=== PATIENT | female | born 1970 | race Hispanic/Latino ===

== ENCOUNTER 2018-08-28 10:25 | Emergency (ER) | payer OTHER ==
[~2018-08-28 10:25] MED LIST: HUM10VIA6 SQ; LISI-617 PO; METF-444 PO
[2018-08-28 10:55] LABS: BASOPHILS % (AUTO) 2.3 % (0.0-5.0); EOSINOPHILS % (AUTO) 3.2 % (0.0-8.0); HEMATOCRIT 44.2 % (36-48); MEAN CORPUSCULAR HEMOGLOBIN 26.2 pg (27.0-33.0); MEAN CORPUSCULAR HGB CONC 33.6 g/dL (32.0-36.0); MEAN CORPUSCULAR VOLUME 78.2 fL (79-99); MONOCYTES % (AUTO) 10.7 % (3.0-13.0); NEUTROPHILS % (AUTO) 50.8 % (40.0-77.0); NUCLEATED RED BLOOD CELLS 0.1 % (0.0-0.19); PLATELET COUNT (AUTO) 202 K/uL (130-400); RED BLOOD CELL COUNT(AUTO) 5.66 MIL/uL (4.00-5.50); RED CELL DISTRIBUTION WIDTH 15.3 % (11.0-15.5); WHITE BLOOD COUNT (AUTO) 4.1 K/uL (4.8-10.8)
[2018-08-28] MEDS ORDERED: LABETALOL HCL 5 MG/ML 20ML VIAL IV ONE (10:56)
[2018-08-28 10:58] LABS: APPEARANCE,URINE Clear (CLEAR); BILIRUBIN,URINE Negative (NEGATIVE); COLOR,URINE Yellow (YELLOW); GLUCOSE, URINE (UA) >=1000 mg/dL (NEGATIVE); KETONES,URINE 40 mg/dL (NEGATIVE); LEUKOCYTE ESTERASE ,URINE Negative (NEGATIVE); NITRATE,URINE Negative (NEGATIVE); OCCULT BLOOD,URINE Negative (NEGATIVE); PH,URINE 5.5 (5.0-8.0); PROTEIN,URINE Negative (NEGATIVE); UROBILINOGEN,URINE 0.2 mg/dL (0.2-1.0)
[2018-08-28 11:00] LABS: CREATININE 0.6 mg/dL (0.5-1.5); POTASSIUM 3.8 mmol/L (3.5-5.1)
[2018-08-28 11:12] LABS: BACTERIA,URINE Rare /HPF (None Seen); RBC,URINE None Seen /HPF (0-1); SQUAMOUS EPITHELIAL CELL,UR Few /HPF (0-2)
== END 2018-08-28 13:07 | disposition home or self-care (01) ==
LOC: EDH 10:25
DX: I10 Essential (primary) hypertension (principal); E11.9 Type 2 diabetes mellitus without complications; Z79.4 Long term (current) use of insulin
CPT/HCPCS: 36415; 80048; 81001; 84484; 85025; 93005; 96374; 99284; J3490

== ENCOUNTER 2019-03-20 12:43 | Observation (INO) | payer OTHER ==
[~2019-03-20] VITALS: Ht 157.5 cm; Wt 102.1 kg
[2019-03-20] MEDS ORDERED: ASPIRIN 325 MG TABLET ONE (13:04)
[2019-03-20] MEDS ORDERED: NITROGLYCERIN 0.4 MG SL TAB SL ONE (13:05)
[2019-03-20] MEDS ORDERED: SODIUM CHLORIDE 0.9% 1000ML 1,000 ML IV ONE (13:05)
[2019-03-20 13:09] LABS: BASOPHILS % (AUTO) 1.4 % (0.0-5.0); HEMATOCRIT 41.9 % (36-48); LYMPHOCYTES % (AUTO) 27.5 % (21.0-51.0); MEAN CORPUSCULAR HEMOGLOBIN 25.4 pg (27.0-33.0); MEAN CORPUSCULAR HGB CONC 32.4 g/dL (32.0-36.0); MEAN CORPUSCULAR VOLUME 78.5 fL (79-99); MONOCYTES % (AUTO) 10.6 % (3.0-13.0); NEUTROPHILS % (AUTO) 58.5 % (40.0-77.0); NUCLEATED RED BLOOD CELLS 0.1 % (0.0-0.19); PLATELET COUNT (AUTO) 188 K/uL (130-400); RED BLOOD CELL COUNT(AUTO) 5.34 MIL/uL (4.00-5.50); RED CELL DISTRIBUTION WIDTH 15.2 % (11.0-15.5); WHITE BLOOD COUNT (AUTO) 4.9 K/uL (4.8-10.8)
[2019-03-20] MEDS ORDERED: METOPROLOL TARTRATE 1 MG/ML 5ML VIAL IV ONE (13:11)
[2019-03-20 13:16] LABS: CREATININE 0.6 mg/dL (0.5-1.5); POTASSIUM 4.2 mmol/L (3.5-5.1)
[2019-03-20 13:17] LABS: INR 0.94 (0.85-1.15); PARTIAL THROMBOPLASTIN TIME 23.2 SEC (26.3-35.5); PROTHROMBIN TIME 9.9 SEC (9.6-11.6)
[2019-03-20 13:30] LABS: ALBUMIN 3.7 g/dL (3.5-5.0); BILIRUBIN,TOTAL 0.6 mg/dL (0.2-1.0); THYROID STIMULATING HORMONE 3.66 uIU/mL (0.36-3.74); TOTAL PROTEIN, SERUM 8.2 g/dL (6.0-8.3)
[2019-03-20 13:36] LABS: B-TYPE NATRIURETIC PEPTIDE 8 pg/mL (0-100)
[2019-03-20 14:20] LABS: HCG,QUAL RESULT NEGATIVE (NEGATIVE)
[2019-03-20 14:23] LABS: AMPHET/METH SCREEN,URINE NEGATIVE (NEGATIVE); BARBITURATE SCREEN, URINE NEGATIVE (NEGATIVE); BENZODIAZEPINES SCREEN,URINE NEGATIVE (NEGATIVE); CANNABINOID SCREEN,URINE NEGATIVE (NEGATIVE); COCAINE SCREEN,URINE NEGATIVE (NEGATIVE); OPIATE SCREEN,URINE NEGATIVE (NEGATIVE); PHENCYCLIDINE SCREEN,URINE NEGATIVE (NEGATIVE)
[2019-03-20] MEDS ORDERED: ONDANSETRON HCL 4 MG/2 ML VIAL IVP PRN (16:15)
[2019-03-20] MEDS ORDERED: MORPHINE SULFATE 4 MG/1ML SYG IVP PRN (16:15)
[2019-03-20] MEDS ORDERED: NITROGLYCERIN 0.4 MG SL TAB SL PRN (16:15)
[2019-03-20] MEDS ORDERED: DEXTROSE 50%-WATER 50 ML DISP.SYRIN IV PRN (16:15)
[2019-03-20] MEDS ORDERED: GLUCAGON 1MG KIT 1 MG ML IM PRN (16:15)
[2019-03-20] MEDS ORDERED: ACETAMINOPHEN 325 MG TAB PO PRN (16:15)
[2019-03-20] MEDS ORDERED: ASPIRIN 325 MG TABLET PO ONE (17:00)
[2019-03-20] MEDS ORDERED: METOPROLOL TARTRATE 25 MG TAB PO ONE (17:00)
[2019-03-20] MEDS ORDERED: GLYB5TAB8 PO (17:31)
[2019-03-20] MEDS ORDERED: METF-446 PO (17:31)
[2019-03-20] MEDS ORDERED: ATOR40TA71 PO (17:31)
[2019-03-20] MEDS ORDERED: LISI-613 PO (17:31)
== END 2019-03-20 17:42 | disposition home or self-care (01) ==
LOC: EDH 12:43 → EDHIP 12:44
PROVIDERS: ADMIT Internal Medicine Cardiovascular Disease; ATTEND Internal Medicine Cardiovascular Disease
DX: R07.89 Other chest pain (principal); E11.9 Type 2 diabetes mellitus without complications; E78.5 Hyperlipidemia, unspecified; G47.10 Hypersomnia, unspecified; E66.9 Obesity, unspecified; I10 Essential (primary) hypertension; Z82.49 Family history of ischemic heart disease and other diseases of the circulatory system; Z79.899 Other long term (current) drug therapy
CPT/HCPCS: 36415; 71045; 80053; 80305; 81025; 82550; 83874; 83880; 84436; 84443; 84484; 85025; 85378; 85610; 85730; 93005; 99284; G0378 ×5; J3490; J7030

== ENCOUNTER 2019-05-20 22:30 | Emergency (ER) | payer OTHER ==
[~2019-05-20 22:30] MED LIST changes: +ATOR40TA71 PO; +GLYB5TAB8 PO; -HUM10VIA6 SQ; +LISI-613 PO; -LISI-617 PO; -METF-444 PO; +METF-446 PO
[2019-05-20 23:06] LABS: BASOPHILS % (AUTO) 0.4 % (0.0-5.0); EOSINOPHILS % (AUTO) 2.5 % (0.0-8.0); HEMATOCRIT 42.5 % (36-48); LYMPHOCYTES % (AUTO) 38.4 % (21.0-51.0); MEAN CORPUSCULAR HEMOGLOBIN 25.5 pg (27.0-33.0); MEAN CORPUSCULAR HGB CONC 32.8 g/dL (32.0-36.0); MEAN CORPUSCULAR VOLUME 77.7 fL (79-99); MONOCYTES % (AUTO) 8.6 % (3.0-13.0); NEUTROPHILS % (AUTO) 50.1 % (40.0-77.0); NUCLEATED RED BLOOD CELLS 0.1 % (0.0-0.19); PLATELET COUNT (AUTO) 218 K/uL (130-400); RED BLOOD CELL COUNT(AUTO) 5.47 MIL/uL (4.00-5.50); RED CELL DISTRIBUTION WIDTH 15.7 % (11.0-15.5); WHITE BLOOD COUNT (AUTO) 5.8 K/uL (4.8-10.8)
[2019-05-20 23:14] LABS: CREATININE 0.8 mg/dL (0.5-1.5); POTASSIUM 3.6 mmol/L (3.5-5.1)
[2019-05-20 23:18] LABS: ALBUMIN 3.8 g/dL (3.5-5.0); BILIRUBIN,TOTAL 0.3 mg/dL (0.2-1.0); TOTAL PROTEIN, SERUM 8.1 g/dL (6.0-8.3)
[2019-05-20 23:20] LABS: INR 0.96 (0.85-1.15); PARTIAL THROMBOPLASTIN TIME 23.2 SEC (26.3-35.5); PROTHROMBIN TIME 9.9 SEC (9.6-11.6)
[2019-05-20] MEDS ORDERED: INSULIN HUMULIN R 100 UNIT/ML 3ML ONE (23:29)
== END 2019-05-20 23:55 | disposition home or self-care (01) ==
LOC: EDH 22:30
DX: H53.8 Other visual disturbances (principal); H33.22 Serous retinal detachment, left eye; E11.65 Type 2 diabetes mellitus with hyperglycemia; I10 Essential (primary) hypertension; Z79.4 Long term (current) use of insulin
CPT/HCPCS: 36415; 80053; 85025; 85610; 85730; 96374; 99284; J1815

== ENCOUNTER 2021-05-01 16:27 | Emergency (ER) | payer OTHER ==
[~2021-05-01] VITALS: Ht 160 cm; Wt 113.4 kg
[~2021-05-01 16:27] MED LIST changes: -LISI-613 PO; +LISI20TA24 PO
[2021-05-01 17:12] LABS: BASOPHILS % (AUTO) 1.2 % (0.0-5.0); EOSINOPHILS % (AUTO) 2.7 % (0.0-8.0); HEMATOCRIT 40.8 % (36-48); LYMPHOCYTES % (AUTO) 26.5 % (21.0-51.0); MEAN CORPUSCULAR HEMOGLOBIN 25.2 pg (27.0-33.0); MEAN CORPUSCULAR HGB CONC 31.4 g/dL (32.0-36.0); MEAN CORPUSCULAR VOLUME 80.3 fL (79-99); MONOCYTES % (AUTO) 9.4 % (3.0-13.0); NEUTROPHILS % (AUTO) 59.8 % (40.0-77.0); PLATELET COUNT (AUTO) 257 K/uL (130-400); RED BLOOD CELL COUNT(AUTO) 5.08 MIL/uL (4.00-5.50); RED CELL DISTRIBUTION WIDTH 15.2 % (11.0-15.5); WHITE BLOOD COUNT (AUTO) 6.8 K/uL (4.8-10.8)
[2021-05-01 17:22] LABS: CREATININE 0.8 mg/dL (0.5-1.5)
[2021-05-01 17:27] LABS: ALBUMIN 3.6 g/dL (3.5-5.0); BILIRUBIN,TOTAL 0.4 mg/dL (0.2-1.0); TOTAL PROTEIN, SERUM 8.1 g/dL (6.0-8.3)
[2021-05-01 17:42] LABS: APPEARANCE,URINE Clear (CLEAR); BILIRUBIN,URINE Negative (NEGATIVE); COLOR,URINE Yellow (YELLOW); GLUCOSE, URINE (UA) Negative (NEGATIVE); KETONES,URINE Trace mg/dL (NEGATIVE); LEUKOCYTE ESTERASE ,URINE Trace (NEGATIVE); NITRATE,URINE Negative (NEGATIVE); OCCULT BLOOD,URINE Negative (NEGATIVE); PH,URINE 8.5 (5.0-8.0); PROTEIN,URINE Negative (NEGATIVE); UROBILINOGEN,URINE >=8.0 mg/dL (0.2-1.0)
[2021-05-01 17:49] LABS: BACTERIA,URINE Rare /HPF (None Seen); MUCUS,URINE Rare LPF (None Seen); RBC,URINE 0-1 /HPF (0-1); SQUAMOUS EPITHELIAL CELL,UR Few /HPF (0-2)
[2021-05-01] MEDS ORDERED: HYDROCODONE/ACETAMINOPHEN 5/325 MG TAB PO STA (18:37)
[2021-05-01] MEDS ORDERED: KETOROLAC 30MG VIAL (30MG/ML) IM STA (18:37)
[2021-05-01] MEDS ORDERED: KETOROLAC 60 MG VIAL (30MG/ML) ONE (18:41)
[2021-05-01] MEDS ORDERED: IBUP-2088 PO (19:50)
[2021-05-01 20:06] VITALS: BP 164/86
== END 2021-05-01 20:05 | disposition home or self-care (01) ==
LOC: EDH 16:27
DX: M54.6 Pain in thoracic spine (principal); E11.9 Type 2 diabetes mellitus without complications; E66.9 Obesity, unspecified; Z20.822 Contact with and (suspected) exposure to COVID-19; Z68.41 Body mass index [BMI] 40.0-44.9, adult; M54.2 Cervicalgia; I10 Essential (primary) hypertension; E78.00 Pure hypercholesterolemia, unspecified; Z79.84 Long term (current) use of oral hypoglycemic drugs; Z79.899 Other long term (current) drug therapy
CPT/HCPCS: 36415; 71045; 80053; 81001; 82550; 84484; 85025; 87635; 93005; 96372; 99285; C9803; J1885

== ENCOUNTER → 2023-06-14 | Outpatient (CLI) | payer OTHER ==
[~2023-06-14] MED LIST changes: +CEPH500B PO; +IBUP-2088 PO; +METO-296 PO; +ONDA4TAB10 PO
== END | disposition home or self-care (01) ==
LOC: RAH 08:59
PROVIDERS: ATTEND Nurse Practitioner Family
DX: Z12.31 Encounter for screening mammogram for malignant neoplasm of breast (principal)
CPT/HCPCS: 77067

== ENCOUNTER 2023-10-11 20:42 | Emergency (ER) | payer BC, OTHER ==
[~2023-10-11] VITALS: Ht 160 cm; Wt 104.3 kg
[2023-10-11 21:37] LABS: APPEARANCE,URINE CLEAR (CLEAR); BILIRUBIN,URINE NEGATIVE (NEGATIVE); COLOR,URINE COLORLESS (YELLOW); GLUCOSE, URINE (UA) NEGATIVE (NEGATIVE); KETONES,URINE NEGATIVE (NEGATIVE); LEUKOCYTE ESTERASE ,URINE NEGATIVE Leu/uL (NEGATIVE); NITRATE,URINE NEGATIVE (NEGATIVE); OCCULT BLOOD,URINE NEGATIVE (NEGATIVE); PH,URINE 5.5 (5.0-8.0); PROTEIN,URINE NEGATIVE (NEGATIVE); UROBILINOGEN,URINE 0.2 mg/dL (0.2-1.0)
[2023-10-11 21:49] LABS: ADD UA MICROSCOPIC YES
[2023-10-11 21:51] LABS: BACTERIA,URINE RARE /HPF (None Seen); MUCUS,URINE RARE LPF (None Seen); RBC,URINE 0-1 /HPF (0-1); SQUAMOUS EPITHELIAL CELL,UR FEW /HPF (0-2); UNCLASSIFIED CRYSTAL 2 /HPF (None Seen); WBC,URINE 0-1 /HPF (0-1)
[2023-10-11] MEDS ORDERED: IBUP-2077 PO (23:35)
[2023-10-11 23:56] VITALS: BP 141/67; PULSE 89; RESP 18; O2SAT 100
== END 2023-10-12 00:02 | disposition home or self-care (01) ==
LOC: EDH 20:42
DX: N20.0 Calculus of kidney (principal); I10 Essential (primary) hypertension; E11.9 Type 2 diabetes mellitus without complications; E78.00 Pure hypercholesterolemia, unspecified; Z79.84 Long term (current) use of oral hypoglycemic drugs; Z79.899 Other long term (current) drug therapy; Z87.442 Personal history of urinary calculi; Z98.890 Other specified postprocedural states
CPT/HCPCS: 76770; 81001

== ENCOUNTER 2025-01-31 23:42 | Emergency (ER) | payer BC ==
[~2025-01-31] VITALS: Ht 160 cm; Wt 101.2 kg
[~2025-01-31 23:42] MED LIST changes: +IBUP-2077 PO; +ONDA-243 PO; -ONDA4TAB10 PO
[2025-02-01] MEDS: FAMOTIDINE 20MG VIAL IV ONE (01:12)
--- NOTE | 2025-02-01 01:19 | ERN ---
General Chief Complaint: Allergic Reaction Stated Complaint: C/O RASH W/REDNESS TO FACE AND NECK Time Seen by MD: 23:45 Source: patient History of Present Illness Initial Comments Patient is a 55-year-old female who has a long history of diabetes with diabetic retinopathy for which she obtains injections into her eye to prevent bleeding with a medication for witch she does not remember the name. She recently switched ophthalmologists and received an an injection today to for the same indication. She does not know if she received an identical medication to stop bleeding associated with diabetic retinopathy or a new one. She does not have the records from her appointments. A few hours after today's injection she started to notice increased swelling and redness over her face. She went to see her primary care doctor who injected some Kenalog into her left deltoid muscle but the redness and swelling continued to spread so she comes here to the emergency room. She says she does not have any unusual visual changes. I have noticed she has bloody chemosis in her eyes and she is that that is normal from these injections as well. Timing/Duration: 24 hours Allergies: Coded Allergies: No Known Drug Allergies (Verified Allergy, Unknown, 07/22/17) Home Meds Active Scripts Ibuprofen (Ibuprofen 800 mg Tab) 800 Mg Tab, 800 MG PO Q6H PRN for PAIN, #30 TAB Prov:SUPRIYA COCHRAN [employer] 10/11/23 Metoclopramide HCl (Reglan) 10 Mg Tablet, 10 MG PO TIDP, #20 TAB 0 Refills Prov:KENDRA MORALES MD 11/04/21 Ondansetron (Ondansetron Odt) 4 Mg Tab.rapdis, 4 MG PO Q6HPRN, #20 TAB 0 Refills Prov:KENDRA MORALES MD 11/04/21 Cephalexin Monohydrate (Keflex) 500 Mg Cap, 500 MG PO QID for 10 Days, #40 CAP 0 Refills Prov:KENDRA MORALES MD 11/04/21 Ibuprofen (Motrin/Advil) 600 Mg Tab, 600 MG PO Q6HPRN, #30 TAB Prov:RUSTY FERRARA NP 05/01/21 Reported Medications Metformin HCl (Metformin HCl) 1,000 Mg Tablet, 1000 MG PO BID, TAB 03/20/19 Lisinopril (Lisinopril) 20 Mg Tablet, 20 MG PO HS, TAB 03/20/19 Glyburide (Glyburide) 5 Mg Tablet, 7.5 MG PO BID, TAB 03/20/19 Atorvastatin Calcium (Atorvastatin Calcium) 40 Mg Tablet, 40 MG PO DAILY, TAB 03/20/19 Past Medical History Past Medical History: Diabetes-Type II, High Cholesterol, Hypertension Medical History Other: Diabetic retinopathy Past Surgical History: Social History Social History: Negative Female( History) History: Not Applicable ROS Dictation Review of systems is negative beyond what is reported in the HPI. Physical Exam Eye: left eye other; bilateral eye PERRL, bilateral eye EOMI Eyes Comment Left eye has subconjunctival hemorrhage. MDM I think the patient is receiving injections in her eye with medications to prevent vascular proliferation. In discussing this with the patient she is not clear whether her allergy is to a new form of that medication or to one of the eyedrops that was placed prior to the procedure she received today. I described to the patient the medications that I was going to use to help quell her allergic reaction and she stated that she had prescriptions for those already, they just had not been filled. She has decided to go home and watch her allergic reaction. I told her that she could draw a line in her skin to make sure that the swelling and redness does not proceed any further. Right now it is at the level of the clavicles. I also warned her about other signs of anaphylaxis such as nausea vomiting and who wheezing. I also suggested a subcu dose of epinephrine and she deferred. ED Course Orders Procedure Category Date Status Time Famotidine 20mg Vial PHA 02/01/25 Transmitted (Pepcid 20mg Vial) 01:00 Diphenhydramine Hcl PHA 02/01/25 Transmitted (Benadryl Inj) 01:00 Vital Signs Date Time Temp Pulse Resp B/P (MAP) Pulse Ox O2 Delivery O2 Flow Rate FiO2 01/31/25 23:45 96.6 111 20 155/82 97 Room Air DX & DISP Disposition: Discharge Departure Impression: Primary Impression: Allergic reaction caused by a drug Condition: Stable Additional Instructions: Patient has decided to watch her redness and swelling. She has prescriptions for Benadryl and famotidine already. I cautioned her about additional signs of an anaphylactic reaction such as wheezing or nausea vomiting or lightheadedness. She states that she will watch the redness and be sure does not spread further by a marking the current edge of the redness in her skin. She understands to come back to the emergency room if there are any signs or symptoms of increased anaphylaxis. Referrals: YENY YIN (PCP) JAMILAH TREVINO MD Feb 01, 2025 01:19
[2025-02-01 01:22] VITALS: BP 142/73; PULSE 99; RESP 20; TEMP 96.9; O2SAT 99
== END 2025-02-01 01:23 | disposition home or self-care (01) ==
LOC: EDH 23:42
DX: R22.0 Localized swelling, mass and lump, head (principal); R21 Rash and other nonspecific skin eruption; T50.905A Adverse effect of unspecified drugs, medicaments and biological substances, initial encounter; E11.319 Type 2 diabetes mellitus with unspecified diabetic retinopathy without macular edema; E78.00 Pure hypercholesterolemia, unspecified; I10 Essential (primary) hypertension; Z79.84 Long term (current) use of oral hypoglycemic drugs; Z79.899 Other long term (current) drug therapy; Y92.89 Other specified places as the place of occurrence of the external cause
CPT/HCPCS: 99281; 99282